=== PATIENT | female | born 1975 | race Caucasian/White ===

== ENCOUNTER 2016-07-30 18:57 | Emergency (ER) | payer BC ==
[~2016-07-30] VITALS: Ht 157.5 cm; Wt 87.3 kg
[~2016-07-30 18:57] MED LIST: CITA20TA9 PO; HYDR50TA13 PO; LEVO75TA5 PO; NORT10CA PO; PREG50CA PO; PROP10TA PO; TRAM50TA2 PO
[2016-07-30 19:00] VITALS: BP 157/85
== END 2016-07-30 19:33 | disposition home or self-care (01) ==
LOC: ED 19:25
DX: H65.03 Acute serous otitis media, bilateral (principal); E03.9 Hypothyroidism, unspecified
CPT/HCPCS: 99283

== ENCOUNTER → 2017-01-20 | Outpatient (CLI) | payer BC ==
[~2017-01-20] MED LIST changes: +CITA10TA4 PO; +GABA300C10 PO; +HYDR1TAB14 PO; +TIZA4TAB PO
== END | disposition home or self-care (01) ==
LOC: RAD 15:36
PROVIDERS: ATTEND Orthopaedic Surgery
DX: Z02.9 Encounter for administrative examinations, unspecified (principal)

== ENCOUNTER 2017-01-24 11:27 | Day surgery (SDC) | payer BC ==
[~2017-01-24] VITALS: Ht 157.5 cm; Wt 82.6 kg
[~2017-01-24 11:27] MED LIST changes: +FENTANYL PF 100 MCG/2ML ONE; +MIDAZOLAM 1 MG/ML, 2ML ONE
[2017-01-24] MEDS ORDERED: LACTATED RINGERS 1,000 ML IV SCH (11:58)
[2017-01-24 12:34] VITALS: BP 112/74
[2017-01-24] MEDS ORDERED: EPINEPHRINE TOPICAL SOLN 1 MG/ML, 30ML ONE (12:37)
[2017-01-24] MEDS ORDERED: ROPIvacaine/PF 0.5%, 30 ML ONE (12:37)
[2017-01-24] MEDS ORDERED: ONDANSETRON 2MG/ML, 2ML ONE (13:03)
[2017-01-24] MEDS ORDERED: ROCURONIUM 10 MG/ML ONE (13:03)
[2017-01-24] MEDS ORDERED: GLYCOPYRROLATE 0.2MG/1ML, 5ML ONE (13:03)
[2017-01-24] MEDS ORDERED: CEFAZOLIN 1,000 MG ONE (13:03)
[2017-01-24] MEDS ORDERED: PROPOFOL 10 MG/ML, 20ML ONE (13:03)
[2017-01-24] MEDS ORDERED: NEOSTIGMINE 1 MG/ML, 10ML ONE (13:03)
[2017-01-24] MEDS ORDERED: DEXAMETHASONE 4 MG/ML, 1ML ONE (13:03)
[2017-01-24] MEDS ORDERED: FENTANYL PF 100 MCG/2ML ONE ×2 (13:12)
[2017-01-24] MEDS ORDERED: ROPIvacaine/PF 0.5%, 30 ML INFIL ONE (13:30)
[2017-01-24] MEDS ORDERED: EPINEPHRINE 1 MG/ML, 30ML IVPB ONE (13:34)
[2017-01-24] MEDS ORDERED: METOPROLOL 1 MG/ML, 5ML IV PRN (14:00)
[2017-01-24] MEDS ORDERED: OXYcodone 5 MG/5 ML ORAL.SOL UDC PO PRN (14:00)
[2017-01-24] MEDS ORDERED: MIDAZOLAM 1 MG/ML, 2ML IV PRN (14:00)
[2017-01-24] MEDS ORDERED: KETOROLAC 30 MG/1 ML IV PRN (14:00)
[2017-01-24] MEDS ORDERED: HYDROmorphone 1 MG/ML, 1ML IV PRN (14:00)
[2017-01-24] MEDS ORDERED: hydrALAzine 20 MG/ML, 1ML IV PRN (14:00)
[2017-01-24] MEDS ORDERED: MEPERIDINE/PF 25MG/0.5ML IVPush PRN (14:00)
[2017-01-24] MEDS ORDERED: FENTANYL PF 100 MCG/2ML IV PRN (14:00)
[2017-01-24] MEDS ORDERED: ACETAMINOPHEN 325 MG TABLET PO PRN (14:00)
[2017-01-24] MEDS ORDERED: ALBUTEROL SULFATE 2.5 MG/3 ML NPPB PRN (14:00)
[2017-01-24] MEDS ORDERED: PROMETHAZINE 25 MG/ML, 1ML IV PRN (14:00)
[2017-01-24] MEDS ORDERED: HYDROmorphone 1 MG/ML, 1ML ONE (15:21)
[2017-01-24] MEDS ORDERED: KETOROLAC 30 MG/1 ML ONE (15:21)
[2017-01-24] MEDS ORDERED: OXYcodone 5 MG/5 ML ORAL.SOL UDC ONE (15:21)
[2017-01-24] MEDS ORDERED: ACETAMINOPHEN 325 MG TABLET ONE (15:22)
[2017-01-24] MEDS ORDERED: ACETAMINOPHEN 650 MG/20.3 ML UDC ONE (15:22)
[2017-01-24] MEDS ORDERED: PROMETHAZINE 25 MG/ML, 1ML ONE (15:23)
== END 2017-01-24 18:00 | disposition home or self-care (01) ==
LOC: OUT 11:27
PROVIDERS: ATTEND Orthopaedic Surgery
DX: M25.852 Other specified joint disorders, left hip (principal); M94.8X5 Other specified disorders of cartilage, thigh; M65.852 Other synovitis and tenosynovitis, left thigh; M19.90 Unspecified osteoarthritis, unspecified site; Z91.040 Latex allergy status; Z91.048 Other nonmedicinal substance allergy status; J45.909 Unspecified asthma, uncomplicated
CPT/HCPCS: 29862; 29863; 29915; 73501; 76001; J0171; J0690; J1100; J1170; J1885; J2250; J2405; J2550; J2704; J2710; J2795; J3010; J7120; J3490

== ENCOUNTER 2018-03-01 19:10 | Emergency (ER) | payer BC ==
[~2018-03-01] VITALS: Ht 157.5 cm; Wt 76.2 kg
[~2018-03-01 19:10] MED LIST changes: -FENTANYL PF 100 MCG/2ML ONE; -MIDAZOLAM 1 MG/ML, 2ML ONE
[2018-03-01 19:14] VITALS: BP 100/69
[2018-03-01] MEDS ORDERED: ALBUTEROL/IPRATROPIUM 2.5MG/0.5MG, 3 ML NPPB ONE (19:30)
[2018-03-01] MEDS ORDERED: ALBUTEROL/IPRATROPIUM 2.5MG/0.5MG, 3 ML ONE (19:37)
== END 2018-03-01 20:30 | disposition home or self-care (01) ==
LOC: ED 20:28
DX: J20.8 Acute bronchitis due to other specified organisms (principal); B97.89 Other viral agents as the cause of diseases classified elsewhere; E03.9 Hypothyroidism, unspecified; J45.909 Unspecified asthma, uncomplicated
CPT/HCPCS: 71046; 93005; 94640; 99284; J7512; J7620